=== PATIENT | male | born 1965 | race Caucasian/White ===

== ENCOUNTER → 2023-02-13 09:53 | Outpatient (BNVA) | payer BC, SELFPAY | PROVIDERS: Family Provider Nurse Practitioner Family; PCP Nurse Practitioner Family; Visit Provider Internal Medicine Cardiovascular Disease | DX: I10 Essential (primary) hypertension (principal); E78.5 Hyperlipidemia, unspecified; I25.10 Atherosclerotic heart disease of native coronary artery without angina pectoris; K21.9 Gastro-esophageal reflux disease without esophagitis | CPT/HCPCS: 36415; 80053; 80061; 85025 ==

== ENCOUNTER → 2024-08-03 15:21 | Outpatient (BNVA) | payer BC, SELFPAY | PROVIDERS: Family Provider Nurse Practitioner Family; PCP Nurse Practitioner Family; Visit Provider Internal Medicine Cardiovascular Disease | DX: R07.9 Chest pain, unspecified (principal) | CPT/HCPCS: 93005 ==

== ENCOUNTER → 2025-06-01 10:38 | Outpatient (BNVA) | payer BC, SELFPAY | PROVIDERS: Family Provider Nurse Practitioner Family; PCP Nurse Practitioner Family; Visit Provider Internal Medicine Cardiovascular Disease | DX: R07.9 Chest pain, unspecified (principal) | CPT/HCPCS: 36415; 80048; 80061; 83880; 84443; 85025; 93005 ==

== ENCOUNTER 2025-06-20 07:13 | Outpatient (CLI) | payer BC, SELFPAY ==
[2025-06-20 07:55] VITALS: BMI 28.0
--- NOTE | 2025-06-20 07:57 | ECG_ITS ---
[facility] Test Date: 2025-06-20 Pat Name: Shaun Quiroz Department: Room: Gender: Male [facility] Resident: : 1965 Requested By: Sang Roche Order Number: [id number] Briggs MD: Edil Munguia M.D. Interpretive Statements EXERCISE MIBI EXERCISE DATA: The patient was exercised by Anthony protocol. Baseline heart rate was 71` beats per minute. Baseline blood pressure was 162/108 millimeters of mercury. Maximal predicted heart rate was 160beats per minute. Maximum heart rate achieved was 137 which was 85% of the maximum predicted heart rate. Maximum blood pressure was 204/121millimeters of mercury. Total exercise time was 7 minutes and 1 second. Maximum METs achieved was 7.0. The reason for ending the test was maximum heart rate is achieved. The patient complained of shortness of breath during the stress test, which then resolved at the end of the test. ELECTROCARDIOGRAM: BASELINE: Showed sinus rhythm, normal axis, no significant ST-T changes at the baseline noted. [] EXERCISE: At the peak exercise level, [] No significant ST-T changes suggestive of ischemia noted. [] RECOVERY: During the recovery period, heart rate dropped appropriately. No significant ST-T changes in the recovery suggestive of ischemia noted. [] CONCLUSION: 1. Exercise capacity is fair. 2. Heart rate response was appropriate. 3. Blood pressure response was hypertensive 4. Symptoms not suggestive of ischemia. 5. Electrocardiogram portion of the stress test was not suggestive of ischemia. 6. Nuclear scan will be documented separately. Electronically Signed On 07-09-2025 22:45:53 CDT by Edil Munguia M.D. [email or web address]
--- NOTE | 2025-06-20 07:58 | NMCV_ITS ---
NM monica perf SPECT r/s* [id number] Shaun Quiroz Age: 59 Gender: M : 1965 Exam Date: 06/20/2025 08:31 Ordering Phys: Sang Roche MD ([email or web address]) Technologist: ELIZA Jacob Exam Location: [facility] Indications: cp STRESS TEST Please see separate stress test report in [facility] for full findings IMAGE PROTOCOL Rest/Stress 1 Exercise Day Radiopharmaceutical Dose (mCi) Administration Site Administered by Rest: Tc-99m 10.6 IV ELIZA Jacob Sestamibi Stress:Tc-99m 32.8 IV ELIZA Jacob Sestamibi Rest: 20-Jun-2025 60 Discovery 630 Stress: 20-Jun-2025 15 Discovery 630 Radiopharmaceutical was injected at 85 % maximum heart rate. Images obtained in supine and prone position. SPECT RESULTS Technical Quality: Good Raw Data Analysis: Normal Image Corrections: No attenuation or motion correction applied Summed Stress Score: 5 Summed Rest Score: 7 Summed Difference Score: 2 PERFUSION FINDINGS Large area of fixed perfusion defect noted in basal to distal inferior inferoseptal and inferolateral wall with small to medium sized area of mild reversibility. It is suggestive of old myocardial infarction surrounded by small to medium sized area mild yany-infarct ischemia in the RCA territory. FUNCTIONAL RESULTS (calculated via Gated SPECT) Stress Image LV EF (%): 64 Stress EDV (mL):103 TID: 0.95 Stress ESV (mL):37 FUNCTIONAL FINDINGS: There appeared to be basal to mid inferior wall hypokinesis. IMPRESSIONS Large area of old myocardial infarction surrounded by small to medium sized area of mild yany-infarct ischemia noted in basal to distal inferior inferoseptal and inferolateral wall suggestive of lesion in RCA territory. Lito Kay MD (Electronically Signed) Final Date: 20 June 2025 11:48 S
[2025-06-20 09:22] VITALS: BP 189/95; PULSE 79
== END 2025-06-20 07:14 | disposition home or self-care (01) ==
PROVIDERS: Family Provider Nurse Practitioner Family; PCP Nurse Practitioner Family; Visit Provider Internal Medicine Cardiovascular Disease
DX: R06.02 Shortness of breath (principal); R53.83 Other fatigue; R93.1 Abnormal findings on diagnostic imaging of heart and coronary circulation
CPT/HCPCS: 36415; 78452; 93017; A9500

== ENCOUNTER → 2025-07-12 11:17 | Outpatient (BNVA) | payer BC, SELFPAY | PROVIDERS: Family Provider Nurse Practitioner Family; PCP Nurse Practitioner Family; Visit Provider Internal Medicine Cardiovascular Disease | DX: R58 Hemorrhage, not elsewhere classified (principal); I25.10 Atherosclerotic heart disease of native coronary artery without angina pectoris; I10 Essential (primary) hypertension | CPT/HCPCS: 36415; 80048; 85025; 85610 ==

== ENCOUNTER 2025-07-20 07:24 | Outpatient (CLI) | payer BC, SELFPAY ==
--- NOTE | 2025-07-19 08:34 | PC.NURSE ---
0830 - Attempted to call patient about upcoming cath and for pre cath instructions, no answer. Left message to return call.
[2025-07-20] VITALS (24 sets, daily range): BP systolic 123–162; BP diastolic 62–95; PULSE 58–72; RESP 14–24; TEMP 37; O2SAT 93–98; BMI 29.5
--- NOTE | 2025-07-20 | XACV_ITS ---
Exam Room: 2 Ht: 175 cm Wt: 91 kg BSA: 2.12 m2 Gender: Male : 1965 Any Known Allergies: No known allergies Exam Priority: Routine Procedure(s): Procedure Description: Diagnostic procedure Procedure Description: PCI procedure Procedure Description: Left Heart Catheterization Procedure Description: Left ventriculography Procedure Description: Drug Eluting Coronary Stent Procedure Description: PTCA Procedure Description: Miscellaneous Procedure Description: ACT Procedure Description: Coronary Angiography Eliza LOCKHART; Diagnostic Cath Status: Elective Diagnostic Findings * Left Main has no disease. * Mid Left Anterior Descending: significant 80% stenosis, GAIL: 3 flow. * Proximal Right Coronary Artery to Distal Right Coronary Artery: mild 40% stenosis, GAIL: 3 flow. * Proximal Circumflex to Distal Circumflex: mild 40% stenosis, GAIL: 3 flow. * Coronary angiography shows right dominance. PCI Status: Elective PCI Indication: New Onset Angina <= 2 months Interventional Findings * Mid Left Anterior Descendin% stenosis treated with a AB TREK 2.50X12 RX BALLOON, RSAVANI Tadeo CANDE 2.75X15 LISA, and MDBlake ANDUJAR EUPHORA RX [id number] BALLOON. 0% residual stenosis, GAIL: 3 flow. Conclusions 1. Indication: Chest pain worsening of angina, shortness of breathLeft main: Normal LAD has patent prior proximal stent, mid LAD has significant 80% stenosis it is the culprit vessel Left circumflex nondominant with luminal irregularity there is 40% proximal to mid stenosis RCA is a dominant vessel there is mild in-stent restenosis in the proximal and mid prior stents. 2. There is significant coronary artery disease with three vessel disease. 3. The mid septum, apical septum, anterolateral, anteroapical bell are hypokinetic. 4. All other visualized bell normal. 5. Normal left ventricular systolic function. Ejection fraction of 50%. 6. Mid Left Anterior Descending was treated with a Balloon, Drug Eluting Stent, and Balloon. Recommendations * 1-Return to inpatient for close monitoring and routine cath care 2-Risk factor modification for secondary prevention 3-Statin and aspirin 81 mg life-long, if tolerated 4-Patient was pre-loaded with 600 mg of Plavix, continue Plavix 75mg p.o. daily for at least one year. We will assess at the end of one year again to continue if further or not 5-Continue optimal medical management 6-Follow up with Dr. Kay in four weeks and your primary care in 10 days. Interventional RX Recommendation: PCI w/o planned CABG Ventriculography Ejection Fraction: 50.0 % Pressures Phase:Rest AO : 130 / 78 ( 98 ) @ 9:55:00 AM 117 / 86 ( 101 ) @ 9:56:00 AM 103 / 72 ( 87 ) @ 9:58:00 AM 124 / 71 ( 91 ) @ 10:02:00 AM 129 / 105 ( 100 ) @ 10:16:00 AM 148 / 77 ( 106 ) @ 10:29:00 AM 149 / 79 ( 108 ) @ 10:29:00 AM LV : 144 / 3 / 24 @ 10:28:00 AM 154 / 0 / 31 @ 10:29:00 AM 154 / 1 / 31 @ 10:29:00 AM Valves Phase:DefaultPhase AV : 18.0 @ 10:34:40 AM AV Mean Gradient: 31.0 @ 10:34:40 AM 31.0 @ 10:34:40 AM Clinical Evaluation EBL: 5mL-10mL Procedural Details Current Diagnosis : Chest Pain. Pre-Procedure Time Out. Identified patient by full name and date of as verbalized by the patient/guarantor. Does the consent match the physician's order: Yes. Accurate & Complete Informed Consent: Yes. Inpatient/Outpatient History & Physical on Chart: Yes. If H&P is completed, is and addenduem needed: No; If yes, is the addendum complete: N/A. Visualize and Verify Site with Patient/Guarantor: N/A. Relevant Radiology Images available: Yes. Pre-op teaching completed and patient verbalized understanding. The risks, benefits, and alternatives of sedation and/or procedure were discussed by physician. The patient agrees to continue. Procedure started. [facility] Clinical Fraility Score: 3: Managing Well. Sports Attorney Indications: Suspected CAD. Chest Pain Symptom Assessment: Typical Angina Symptoms. Correct patient, site and procedure confirmed by cath team. Current diagnosis: Chest Pain. PERRLA. Strong, equal hand auto parts manager bilaterally. Lungs clear x 5 lobes. IV Site on Arrival: 20 gauge in the right anticubital. IV Fluids: 0.9% NaCl at KVO. 0 mL infused prior to laborer cutting tool. Pre Procedural Pulses: bilateral dorsalis pedis was 2+. Pre Procedural Pulses: bilateral posterior tibial was 2+. Pre Procedural Pulses: bilateral radial was 3+. Oxygen started at 2liters/min via nasal canula. right groin was prepped with chloroprep then draped in the usual sterile fashion. right radial was prepped with chloroprep then draped in the usual sterile fashion. Baseline sample Acquired. HR: 0 BPM. Physician arrived. Physician scrubbed in. Immediate Pre-Procedure Time Out. Correct Patient: Yes; Correct Procedure: Yes; Correct Site: Yes; Correct Patient Position: Yes; Correct Supplies: Yes; Dried Flammable Prep: Yes; Blood Products Available: N/A;. Lidocaine 1% infiltrated to the right radial. Arterial access obtained. A 5 italian Deo catheter in over wire. Multiple views taken of left coronary artery. Catheter redirected to the RCA. Multiple views taken of right coronary artery. Catheter removed over the exchange wire. 6 italian XB 3.5 guide catheter was inserted over the wire. ACT drawn. Results 231 seconds. Therapeutic limits - pre-heparin administration 90-150 seconds and monitoring heparin during a vascular procedure >250 seconds. Runthrough guidewire was advanced through the guide catheter to lesion in the mid LAD. Inflation number : 1 A AB TREK 2.50X12 RX BALLOON was prepped and advanced across the Mid LAD , then inflated to 8 YUN for 0:10 seconds. Inflation number: 2 The AB TREK 2.50X12 RX BALLOON was reinflated across the Mid LAD, to 8 YUN for 0:07 seconds. Balloon out. Results checked. Inflation Number : 3 A MDT R CANDE 2.75X15 LISA -Lot Number# _[id number] EXP: was prepped and advanced across the Mid LAD. The stent was deployed at 12 YUN for 0:10 seconds. Stent balloon out over wire. Inflation number : 4 A MDT NC EUPHORA RX [id number] BALLOON was prepped and advanced across the Mid LAD , then inflated to 12 YUN for 0:08 seconds. Inflation number: 5 The MDT NC EUPHORA RX [id number] BALLOON was reinflated across the Mid LAD, to 11 YUN for 0:14 seconds. Inflation number: 6 The MDT NC EUPHORA RX [id number] BALLOON was reinflated across the Mid LAD, to 12 YUN for 0:09 seconds. Balloon out. Results checked. Wire out. Guide catheter out. A 5 italian Angled Pig catheter in over wire. EDP Sample taken: LV 144/3,24; HR: 61 BPM; SpO2: 97%. LV gram performed in [place] @ 10 mL/second for a total of 30 mL. EDP Sample taken: LV 154/0,31; HR: 57 BPM; SpO2: 93%. Pullback taken: LV 154/1,31; AO 148/77(106); Mean: 31mmHg, Peak to Peak: 18mmHg, SEP: 20sec/min; HR: 67 BPM; SpO2: 97%. Catheter removed over the exchange wire. A TR Band was successful obtaining hemostatsis at the Right Radial artery insertion site. Vital chart was stopped. Post Procedure: Pulses reassessed and unchanged. PERRLA. Strong, equal hand auto parts manager bilaterally. No VTE prophylaxis required. Medication's Wasted: Lidocaine 1% = 16 mL. Total IV fluids: 80 mL. Medication's Wasted: Nitro = 49.6 mcg. Medication's Wasted: Other = Fentanyl 75mcg Versed 1 mg. Total IV fluids: 80 mL. Post-op diagnosis: Stent to CX. Complications: None. Estimated blood loss: 5mL-10mL. Responsiveness - Normal response to verbal stimuli; alert and oriented, PERRLA. Airway - Unaffected, no intervention required; spontaneous ventilation. Circulation: W/N/L, pulses unchanged. Nausea/Vomiting: No. Procedure completed. Patient transferred by wheelchair to CPRU. Access Site Site: Right Radial artery Sheath Size: 6 Fr Hemostasis Method: TR Band Hemostasis Success: Successful Procedure Medications Start: 9:29 AM Stop: 9:29 AM Medication: Fentanyl Amount: 50 mcg Route: I.V. Start: 9:38 AM Stop: 9:38 AM Medication: Versed Amount: 1 mg Route: I.V. Start: 9:39 AM Stop: 9:39 AM Medication: Fentanyl Amount: 25 mcg Route: I.V. Start: 9:50 AM Stop: 9:50 AM Medication: Nitrogylcerin Amount: 200 mcg Route: I.A. Start: 9:53 AM Stop: 9:53 AM Medication: Heparin Amount: 5000 units Route: I.V. Start: 9:55 AM Stop: 9:55 AM Medication: Fentanyl Amount: 25 mcg Route: I.V. Start: 9:56 AM Stop: 9:56 AM Medication: Versed Amount: 1 mg Route: I.V. Start: 10:09 AM Stop: 10:09 AM Medication: Versed 1 mg and Fentanyl 25 mcg Amount: 1 Route: I.V. Start: 10:09 AM Stop: 10:09 AM Medication: Heparin Amount: 4000 units Route: I.V. Start: 10:20 AM Stop: 10:20 AM Medication: Nitrogylcerin Amount: 200 mcg Route: I.A. Start: 10:29 AM Stop: 10:29 AM Medication: Plavix Amount: 300 mg I, the attending physician, have reviewed and verified all procedure medications. Yes, all medications given per verbal order History/Risk Factors Hypertension: Yes Dyslipidemia: Yes Peripheral Arterial Disease (PAD): No Myocardial Infarction (CO): Yes Obesity: No Renal Disease: No Tobacco Use: Current/Recent(w/in 1 year) Prior Interventions PCI: Yes CABG: No Valve Surgery: No Date of PCI: 12/02/2016 Report Signatures Finalized by Lito Kay MD on 07/22/2025 03:38 PM
--- NOTE | 2025-07-20 09:40 | PC.NURSE ---
Addendum entered by Coty Cutler RN 07/20/25 11:39: The below note should be timed for 1040 not 0940. Original Note: Received the patient back from the greenskeeper laborer via wheelchair s/p PCI of the mid LAD. Patient ambulated to the cot without difficulty. A & 0 x 3. hall monitor placed and vital signs obtained. TR band intact to the right wrist. A small, quarter sized, hematoma was noted just proximal to the TR band. It was compressed out and a 2nd TR band was applied. Dr. Kay notified with no new orders. Palpable radial pulse. No other assessment changes noted from pre cath assessment. Family at bedside. No concerns voiced at this time.
--- NOTE | 2025-07-20 09:41 | W.PM.OPSUD ---
Surgery/Procedure H&P Update DATE OF PROCEDURE: July 20, 2025 DATE H&P PERFORMED: 07/12/25 H&P UPDATE INFORMATION: I have reviewed H&P completed within last 30 days, I have examined patient prior to procedure and No changes to prior documentation PREOP DIAGNOSIS: Worsening of angina, abnormal stress test PRIMARY INDICATION FOR PROCEDURE: 59-year-old male extensive history of coronary artery disease status post multiple stent for worsening of chest pain or shortness of breath underwent nuclear stress test turned out to be positive it is the reason patient was referred to us for left heart cath by his data power consultant Dr. Moreno. PLANNED PROCEDURE: Operation Date: 07/20/25 08:30 Proposed Procedures p Cardiac Catheterization - LHC w/w/o LV & Coros(Left) - Lito Kay MD PATIENT REASSESSED PRIOR TO SEDATION, WITH NO CHANGE NOTED: Yes PHYSICAL EXAM: alert, oriented x 3, clear to auscultation bilaterally, regular rate & rhythm and operative site marked AIRWAY EVAL/ANESTHESIA PLAN: ASA II, Risks, benefits & alternatives of sedation and/or procedure discussed and Patient agrees to continue as planned ADDITIONAL INFORMATION: Patient has been explained all risk-benefit and alternative for the procedure. Patient understand 2% risk of stroke major bleed. Patient understand 5% risk of minor bleeding oozing infection hematoma contrast-induced nephropathy urgent or emergent vascular bypass surgery. Patient agrees to it and would like to proceed with it.
--- NOTE | 2025-07-20 10:44 | P.PCN_ITS ---
Procedure Note: Date of procedure: 07/20/25 Pre-procedure diagnosis: Abnormal stress test Post-procedure diagnosis: same Procedure: After cath was performed because of worsening of shortness of breath abnormal stress test Left main: Luminal irregularity without significant stenosis LAD has patent previously placed proximal stent. Mid LAD has significant 80% stenosis it is a culprit vessel Left circumflex is nondominant vessel with luminal irregularity and proximal 30 to 40% stenosis RCA is a dominant vessel with patent previously placed proximal and mid stent. Distal vessel does not have significant stenosis Left ventricle ejection fraction appeared to be normal 60%. PCI to mid LAD with single drug-eluting stent using 2.75 x 15 mm [place] stent which was postdilated with 3.0 x 12 mm noncompliant balloon. Excellent angiographic result with GAIL-3 flow was achieved. No complication. Plan: 100 mL/h normal saline normal saline 300 mg of Plavix now, continue aspirin 8 1 mg. Continue dual antiplatelet therapy in the form of 75 mg of Plavix and 81 mg of aspirin from tomorrow. Continue home medications. Bedrest as per radial band protocol. Full note to be dictated Coding Level of Care Code Acute Code for Laya Moore
--- NOTE | 2025-07-20 12:30 | PC.NURSE ---
2nd TR band off. No bleeding or hematoma noted. Now, letting the air out of TR band #1 per protocol.
--- NOTE | 2025-07-20 12:45 | PC.NURSE ---
A small, quarter sized, hematoma was noted to be forming proximal to the 1st TR band. It was compressed out and the 2nd TR band was palced back on. Will wait one hour and start letting the air out. Dr. Kay was notified with no new orders at this time. No other changes noted.
--- NOTE | 2025-07-20 14:00 | PC.NURSE ---
2nd TR band off with no bleeding. Old area of hematoma was marked. Will continue to monitor. Report called to Mandy Champion RN. Plan to transfer to OPS room #3 shortly. Per , the patient may DC home at 1800 if 1st TR band off and wrist stable.
--- NOTE | 2025-07-20 14:40 | PC.NURSE ---
Patient transferred to [facility] rrom #3 via wheelchair with Grecia Collazo RN.
--- NOTE | 2025-07-20 15:06 | SUR.PREOP ---
1440-Patient arrived from lab courier to OPS from Grecia RODRIGUEZ. Patient vital signs are WNL, tr band in place with hematoma area noted.
--- NOTE | 2025-07-20 15:07 | SUR.PHASEII ---
1500-Removed 2ml from TR band. No signs of blood under band, no change to hematoma.
--- NOTE | 2025-07-20 15:13 | SUR.PHASEII ---
1512-3ml air removed from TR band. No changes to site.
--- NOTE | 2025-07-20 15:25 | SUR.PHASEII ---
1524-2 ml air removed from TR band, no changes to hematoma, no signs of bleeding.
--- NOTE | 2025-07-20 15:35 | SUR.PHASEII ---
1535-2 ml air removed from tr band. no change in hematoma, no signs of bleeding.
--- NOTE | 2025-07-20 15:50 | SUR.PHASEII ---
1550-3ml air removed from TR band. no change to hematoma, no signs of bleeding.
--- NOTE | 2025-07-20 16:03 | SUR.PHASEII ---
1600-2 ml air removed from tr band no change to hematoma, no signs of bleeding. All air is out of TR band. Will continue to monitor TR band and site for 15 minutes.
--- NOTE | 2025-07-20 16:21 | SUR.PHASEII ---
1620-TR band removed from site. Hematoma present but no change in size or color. Bandaid applied over site.
--- NOTE | 2025-07-20 16:26 | SUR.PHASEII ---
1625-Blood on bandaid, TR band applied with 5ml air.
--- NOTE | 2025-07-20 16:48 | SUR.PHASEII ---
1648-3 ml air removed from TR band
--- NOTE | 2025-07-20 17:14 | SUR.PHASEII ---
1714-4 ml air removed TR band
--- NOTE | 2025-07-20 17:38 | SUR.PHASEII ---
1735-3 ml air removed from TR band
== END 2025-07-20 07:25 | disposition home or self-care (01) ==
PROVIDERS: PCP Nurse Practitioner Family; Visit Provider Internal Medicine Cardiovascular Disease
DX: I25.118 Atherosclerotic heart disease of native coronary artery with other forms of angina pectoris (principal); Z95.5 Presence of coronary angioplasty implant and graft; I10 Essential (primary) hypertension; E78.5 Hyperlipidemia, unspecified; I25.2 Old myocardial infarction; F17.210 Nicotine dependence, cigarettes, uncomplicated; Z79.82 Long term (current) use of aspirin; Z79.02 Long term (current) use of antithrombotics/antiplatelets; K21.9 Gastro-esophageal reflux disease without esophagitis
CPT/HCPCS: 36415; 85347; 93458; 99152; 99153; C1725; C1769; C1874; C1887; C1894; C9600; J1644; J2250; J3010; J3490; J7030; J9999; Q0163; Q9967

== ENCOUNTER 2025-08-16 10:11 | Outpatient (CLI) | payer BC, SELFPAY ==
--- NOTE | 2025-08-16 10:18 | CT_ITS ---
WS: [id number] CT ABDOMEN AND PELVIS NONCONTRAST HISTORY: VENTRAL HERNIA W/O OBSTRUCTION OR GANGRENE TECHNIQUE: Imaging performed through the abdomen and pelvis. Coronal and sagittal reformats are submitted. All CT scans at [facility] use at least one of these dose optimization techniques: automated exposure control; mA and/or kV adjustment per patient size (includes targeted exams where dose is matched to clinical indication); or iterative reconstruction. DLP: 461.03 mGy.cm COMPARISON: None available. Lower thorax: Lung bases are clear. Visualized heart is normal. Small hiatal hernia. Liver: Normal size liver. Mild hepatic steatosis. No mass or bile duct dilatation. Gallbladder: Mildly contracted gallbladder. Pancreas: Normal size and attenuation. Normal pancreatic duct. No pancreatitis or mass. Spleen: Spleen is enlarged measuring 14.1 cm in length. Adrenal glands: Normal. No mass. Right kidney: Normal size kidney with no mass or hydronephrosis. Left kidney: Normal size kidney with no mass or hydronephrosis. Aorta: Mild atherosclerosis abdominal aorta with no aneurysm. No free fluid, intraperitoneal air or significant lymphadenopathy. GI tract: Stomach is well distended with food products. No small bowel obstruction. No colon obstruction. Normal appendix. No colitis. There are diffuse distal colon diverticula without diverticulitis. Abdominal wall: Tiny umbilical hernia containing fat only. Pelvis: No free fluid in the pelvis. Urinary bladder is well distended. No adenopathy. Fat-containing bilateral inguinal canals. Osseous structures: Unremarkable. CT/CT abdomen pelvis wo con [id number] IMPRESSION: 1. Tiny fat-containing umbilical hernia. 2. No GI tract obstruction. 3. No renal obstruction. 4. Mild splenomegaly. Spleen is measuring top normal size. 5. No adenopathy or ascites. 6. Hepatic steatosis.
== END 2025-08-16 10:12 | disposition home or self-care (01) ==
LOC: RAD 10:14
PROVIDERS: PCP Nurse Practitioner Family; Visit Provider Nurse Practitioner Family
DX: K43.9 Ventral hernia without obstruction or gangrene (principal); R16.1 Splenomegaly, not elsewhere classified; K76.0 Fatty (change of) liver, not elsewhere classified
CPT/HCPCS: 74176